=== PATIENT | male | born 1970 | race Caucasian/White ===

== ENCOUNTER 2021-08-22 10:44 | Emergency (ER) | payer MEDICAID, OTHER ==
[~2021-08-22] VITALS: Ht 177.8 cm; Wt 70.0 kg
[~2021-08-22 10:44] MED LIST: AMOX-424 MT
[2021-08-22 10:50] VITALS: BP 134/72
[2021-08-22 12:37] LABS: BASOPHILS % 0.4 % (0.0-2.0); HEMOGLOBIN. 15.5 g/dL (14.0-18.0); MEAN CORPUSCULAR HEMOGLOBIN 30.5 pg (28.0-32.0); MEAN CORPUSCULAR VOLUME 92.3 fL (80.0-94.0); MEAN PLATELET VOLUME 7.6 fl (7.4-10.4); NEUTROPHILS % 72.6 % (40.0-76.0); PLATELET 309 x1000/uL (130-400); RED CELL DISTRIBUTION WIDTH 15.4 % (11.6-14.6)
[2021-08-22 12:45] LABS: CHLORIDE 106 mEq/L (98-107)
== END 2021-08-22 13:20 | disposition left against medical advice (07) ==
LOC: ER 11:10
DX: M17.11 Unilateral primary osteoarthritis, right knee (principal); R26.2 Difficulty in walking, not elsewhere classified
CPT/HCPCS: 36415; 73560; 80053; 85025; 85651; 86140; 93971; 99285